=== PATIENT | male | born 1955 | race African-American/Black ===

== ENCOUNTER 2016-04-10 17:34 | Emergency (ER) | payer MEDICARE, MEDICAID ==
[~2016-04-10] VITALS: Ht 185.4 cm; Wt 100.0 kg
[~2016-04-10 17:34] MED LIST: BLOOD PRESSURE; CHOLESTEROL LOWERING; PRED20 PO; RANI150 PO
[2016-04-10 17:40] VITALS: BP 133/89; PULSE 93; RESP 12; TEMP 98.5; O2SAT 100
[2016-04-10] MEDS ORDERED: LIDOCAINE 1%/EPINEPHrine 1:100,000 SOLN 20 ML VIAL INFIL ONE (17:45)
[2016-04-10 18:05] LABS: BASOPHIL # 0.1 TH/MM3 (0-0.2); BASOPHIL % 1.4 % (0.0-2.0); EOSINOPHIL % 0.1 % (0.0-4.0); HEMATOCRIT 30.9 % (39.0-51.0); HEMO FLAGS DIFF FINAL; LYMPH % 40.7 % (9.0-44.0); LYMPHOCYTE # 2.9 TH/MM3 (1.0-4.8); MEAN CELL VOLUME 88.6 FL (80.0-100.0); MEAN CORPUSCULAR HGB CONC 31.6 % (32.0-36.0); MONO % 15.8 % (0.0-8.0); PLATELET COUNT 119 TH/MM3 (150-450); RED BLOOD COUNT 3.49 MIL/MM3 (4.50-5.90); RED CELL DISTRIBUTION WIDTH 19.2 % (11.6-17.2)
--- NOTE | 2016-04-10 18:07 | PD ---
HPI Chief Complaint: Fall Time Seen by Provider: 18:03 Travel History International Travel<30 days: No Contact w/Intl Traveler<30days: No Traveled to known affect area: No History of Present Illness HPI 60-year-old male that presents to the ED for evaluation of fall. Patient reports that today he believes that he had a slip and fall. Per patient doesn' t remember what actually happened as he happened so quick. Per patient she's been weak in his legs secondary to chemotherapy secondary to Multiple Myeloma. Per patient he gets chemotherapy every Monday. Last time being this Monday. Per patient she did not lose consciousness but did hit the back of his head. Per patient he wasnt able to get himself up and called the ambulance. Ambulance was in seen and apparently patient was going to be put on a backboard with patient got more dizzy secondary to laying flat. Patient does have a hematoma to the right occipital head. He denies any blood thinners other than aspirin. He denies any chest pain or shortness of breath. No hip pain or arm pain. Able to move all extremities. He states having some neck and back discomfort but otherwise minimal discomfort. Per patient the pain in his head is 7 out of 10. He denies any blurry vision or double vision. No allergies to medication. PFSH Past Medical History Cancer: Yes (MYELOMA) Chemotherapy: Yes (EVERY MONDAY) Diminished Hearing: No Hypertension: Yes Past Surgical History Surgical History: No Previous Surgery Family History Family Hypercholesterolemia: Yes Social History Alcohol Use: Yes (OCCASIONALLY) Tobacco Use: Yes (2-3 CIGARETTES PER DAY) Substance Use: No Allergies-Medications (Allergen,Severity, Reaction): Coded Allergies: No Known Allergies (Verified , 04/10/16) Reported Meds & Prescriptions Reported Meds & Active Scripts Active Reported [Cholesterol Lowering] Review of Systems General / Constitutional: No: Fever, Chills, Weight Gain, Weight Loss, Other Eyes: No: Diploplia, Blurred Vision, Photophobia, Drainage, Redness, Foreign Body Sensation, Pain, Tearing, Blind Spots, Visual changes, Blindness, Other HENT: Positive: Headaches, No: Vertigo, Lightheadedness, Sore Throat, Rhinitis , Rhinorrhea, Congestion, Nosebleed, Neck Stiffness, Neck Pain, Masses, Gingival Bleeding, Dental Difficulties, Ear Discharge, Earache, Other Cardiovascular: No: Chest Pain or Discomfort, Palpitations, Irregular Rhythm, Tachycardia, Diaphoresis, Syncope, Dyspnea on exertion, Varicosities, Edema, Cyanosis, Varicosities, Phlebitis, Claudication, Other Respiratory: No: Cough, Shortness of Breath, Wheezing, Sneezing, Orthopnea, Hemoptysis, Stridor, Night Sweats, Pleuritic Pain, Other Gastrointestinal: No: Nausea, Vomiting, Diarrhea, Abdominal Pain, Hematemesis, Hematochezia, Constipation, Changes in Bowel Habits, Indigestion, Dysphagia, Loss of Appetite, Other Genitourinary: No: Urgency, Frequency, Dysuria, Nocturia, Hematuria, Decreased Urinary Output, Oliguria, Hesitancy, Dribbling, Incontinence, Pelvic Pain, Flank Pain, Dyspareunia, Discharge, Dysmenorrhea, Menorrhagia, Metorrhagia, Vaginal Bleeding, Other Musculoskeletal: Positive: Weakness, Pain, No: Myalgias, Arthralgias, Limited ROM, Cramping, Edema, Atrophy, Other Skin: Positive Lumps, No Rash, No Itching, No Dryness, No Hives, No Change in Pigmentation, No Change in nails, No Alopecia, No Lesions, No Breast Lumps, No Breast Tenderness, No Breast Swelling, No Other Neurologic: Positive: Weakness, Headache, No: Dizziness, Syncope, Focal Abnormalities, Coordination Problem, Tremor, Ataxia, Change in Mentation, Slurred Speech, Paresthesia, Incontinence, Seizures, Sensory Disturbance, Other Psychiatric: No: Anxiety, Depression, Suicidal Ideations, Disorder of Thought, Mood Disorder, Substance Abuse, Homicidal Ideation, Other Endocrine: No: Heat Intolerance, Cold Intolerance, Polyuria, Polydipsia, Other Hematologic/Lymphatic: No: Easy Bruising, Lymph Node Enlargement, Other Physical Exam Narrative GENERAL: SKIN: Warm and dry. Patient has a 3 cm in diameter occipital hematoma to the right side of the head with a small laceration which is about 3 cm. Very well approximated. HEAD: Atraumatic. Normocephalic. EYES: Pupils equal and round. No scleral icterus. No injection or drainage. ENT: No nasal bleeding or discharge. Mucous membranes pink and moist. Tongue is midline. No uvula deviation. NECK: Trachea midline. No JVD. CARDIOVASCULAR: Regular rate and rhythm. No murmurs, S3, S4. RESPIRATORY: No accessory muscle use. Clear to auscultation. Breath sounds equal bilaterally. GASTROINTESTINAL: Abdomen soft, non-tender, nondistended. Hepatic and splenic margins not palpable. MUSCULOSKELETAL: Extremities without clubbing, cyanosis, or edema. No obvious deformities. Full range of motion of the upper and lower extremities bilaterally. 2+ pulses bilaterally. Neurovascular intact. Patient had some cervical spine to to palpation. No lumbar, thoracic spine tenderness to palpation. No obvious pelvic pain to palpation. NEUROLOGICAL: Awake and alert. No obvious cranial nerve deficits. Motor grossly within normal limits. Five out of 5 muscle strength in the arms and legs. Normal speech. PSYCHIATRIC: Appropriate mood and affect; insight and judgment normal. Data Data Last Documented VS Vital Signs Date Time Temp Pulse Resp B/P Pulse Ox O2 Delivery O2 Flow Rate FiO2 04/10/16 17:49 93 15 100 Room Air 04/10/16 17:40 98.5 133/89 Orders Complete Blood Count With Diff (04/10/16 17:40) Basic Metabolic Panel (Bmp) (04/10/16 17:40) Prothrombin Time / Inr (Pt) (04/10/16 17:40) Act Partial Throm Time (Ptt) (04/10/16 17:40) Magnesium (Mg) (04/10/16 17:40) Thyroid Stimulating Hormone (04/10/16 17:40) Ct Brain W/O Iv Contrast(Rout) (04/10/16 17:40) Iv Access Insert/Monitor (04/10/16 17:40) Ecg Monitoring (04/10/16 17:40) Oximetry (04/10/16 17:40) Ct Cerv Spine W/O Contrast (04/10/16 ) Chest, Single Ap (04/10/16 ) Wound Care (04/10/16 17:42) Lidocai-Epi 1%-1:100,000 Inj (Xylocaine- (04/10/16 17:45) Labs Laboratory Tests Test 04/10/16 17:52 White Blood Count 7.0 TH/MM3 Red Blood Count 3.49 MIL/MM3 Hemoglobin 9.8 GM/DL Hematocrit 30.9 % Mean Corpuscular Volume 88.6 FL Mean Corpuscular Hemoglobin 28.0 PG Mean Corpuscular Hemoglobin 31.6 % Concent Red Cell Distribution Width 19.2 % Platelet Count 119 TH/MM3 Mean Platelet Volume 8.7 FL Neutrophils (%) (Auto) 42.0 % Lymphocytes (%) (Auto) 40.7 % Monocytes (%) (Auto) 15.8 % Eosinophils (%) (Auto) 0.1 % Basophils (%) (Auto) 1.4 % Neutrophils # (Auto) 3.0 TH/MM3 Lymphocytes # (Auto) 2.9 TH/MM3 Monocytes # (Auto) 1.1 TH/MM3 Eosinophils # (Auto) 0.0 TH/MM3 Basophils # (Auto) 0.1 TH/MM3 CBC Comment DIFF FINAL Differential Comment Prothrombin Time 11.2 SEC Prothromb Time International 1.0 RATIO Ratio Activated Partial 26.8 SEC Thromboplast Time Sodium Level 142 MEQ/L Potassium Level 4.9 MEQ/L Chloride Level 109 MEQ/L Carbon Dioxide Level 25.6 MEQ/L Anion Gap 7 MEQ/L Blood Urea Nitrogen 20 MG/DL Creatinine 1.80 MG/DL Estimat Glomerular Filtration 47 ML/MIN Rate Random Glucose 83 MG/DL Calcium Level 8.7 MG/DL Magnesium Level 2.1 MG/DL Thyroid Stimulating Hormone 0.468 uIU/ML [address] [place] [address] Medical Decision Making Medical Screen Exam Complete: Yes Emergency Medical Condition: Yes Medical Record Reviewed: Yes Interpretation(s) CBC & BMP Diagram 04/10/16 17:[address] 04/10/16 1740 Signed Impressions: Service Date/Time: Sunday, April 10, 2016 18:12 - CONCLUSION: No acute intracranial abnormality disease. Right parietal scalp laceration. Misael Gee MD Chest X-Ray 04/10/16 0000 Signed Impressions: Service Date/Time: Sunday, April 10, 2016 17:57 - CONCLUSION: No acute disease. Misael Gee MD Cervical Spine CT 04/10/16 0000 Signed Impressions: Service Date/Time: Sunday, April 10, 2016 18:12 - CONCLUSION: No fracture or subluxation. Misael Gee MD Differential Diagnosis Fall versus syncope versus head injury versus ICH versus head bleed Narrative Course 60-year-old male that presents to the ED for evaluation of fall. Patient was properly examined and was found to have signs and symptoms consistent with appears to be fall. Labs and imaging ordered. Labs and imaging showed no sign of acute disease other than laceration. Patient is neurovascular intact. Patient voices no complaints other than slight headache. After explaining proceeded to the patient and she agreed to it laceration was repaired as stated in procedure note. Patient was told to do wound care. Yosi to be removed in 7 days. Patient was told to apply ice. Continue taking his pain medication as needed. This was discussed with the family member as well who agrees with plan. See ED for any worsening symptoms. Procedures Procedure Narrative LACERATION LOCATION: right occipital head LENGTH: 3 cm NUMBER OF STITCHES/YOSI: 7 yosi REPAIR: The area of the laceration was prepped with Betadine and sterilely draped. The laceration was infiltrated with 1% Xylocaine. The wound was copiously irrigated and explored without evidence of foreign body, tendon injury or neurovascular injury. The wound was closed using sterile stapler. This was a 1 layer repair. A sterile dressing was applied. The patient was advised to keep the dressing clean and dry. Patient tolerated the procedure well. Diagnosis Primary Impression: Head injury, acute Qualified Code: S09.90XA - Head injury, acute, initial encounter Additional Impression: Laceration Patient Instructions: General Instructions Additional Instructions: Wound care daily with soap and water. You can apply bandaid if needed. Neosporyn or OTC antibiotic ointment to area as needed twice a day for at least 2 weeks to help with scarring and prevent infection. Meoderma OTC for scarring if needed. Avoid sun exposure for 2 months as the sun could make scar darker and more noticeable. Get yosi removed in 5-7 days. See ED if worst. Continue taking her pain medication. Ice to the area. See ED worsening symptoms Med/Other Pt SpecificInfo: Prescription(s) given Disposition: 01 DISCHARGE HOME Condition: Stable Bhavin Lauren Apr 10, 2016 18:07 Bhavin Lauren Apr 10, 2016 18:07
--- NOTE | 2016-04-10 18:09 | RADRPT ---
EXAM DATE/TIME: 04/10/2016 17:57 [facility] COMPARISON: No previous studies available for comparison. INDICATIONS : Shortness of breath post fall. MEDICAL HISTORY : None. SURGICAL HISTORY : None. ENCOUNTER: Initial ACUITY: 1 day PAIN SCORE: 0/10 LOCATION: Bilateral chest FINDINGS: A single view of the chest demonstrates the lungs to be symmetrically aerated without evidence of mas s, infiltrate or effusion. The cardiomediastinal contours are unremarkable. Osseous structures are intact. CONCLUSION: No acute disease. Misael Gee MD on April 10, 2016 at 18:08 Board Certified Radiologist. This report was verified electronically.
[2016-04-10 18:13] LABS: APTT (PATIENT) 26.8 SEC (24.3-30.1); PROTHROMBIN TIME - PATIENT 11.2 SEC (9.8-11.6)
--- NOTE | 2016-04-10 18:21 | RADRPT ---
EXAM DATE/TIME: 04/10/2016 18:12 [facility] COMPARISON: No previous studies available for comparison. INDICATIONS : Fall today, cephalgia and neck pain. RADIATION DOSE: 45.77 CTDIvol (mGy) MEDICAL HISTORY : Hypertension. SURGICAL HISTORY : None. ENCOUNTER: Initial ACUITY: 1 day PAIN SCALE: 6/10 LOCATION: Bilateral head TECHNIQUE: Multiple contiguous axial images were obtained of the head. Using automated exposure control and adj ustment of the mA and/or kV according to patient size, radiation dose was kept as low as reasonably a chievable to obtain optimal diagnostic quality images. FINDINGS: CEREBRUM: The ventricles are normal for age. No evidence of midline shift, mass lesion, hemorrhage or acute in farction. No extra-axial fluid collections are seen. POSTERIOR FOSSA: The cerebellum and brainstem are intact. The 4th ventricle is midline. The cerebellopontine angle i s unremarkable. EXTRACRANIAL: The visualized portion of the orbits is intact. Right posterior right scalp laceration. SKULL: The calvaria is intact. No evidence of skull fracture. CONCLUSION: No acute intracranial abnormality disease. Right parietal scalp laceration. Misael Gee MD on April 10, 2016 at 18:18 Board Certified Radiologist. This report was verified electronically.
[2016-04-10 18:31] LABS: BICARBONATE 25.6 MEQ/L (21.0-32.0); MAGNESIUM 2.1 MG/DL (1.5-2.5); POTASSIUM 4.9 MEQ/L (3.5-5.1)
--- NOTE | 2016-04-10 18:33 | RADRPT ---
EXAM DATE/TIME: 04/10/2016 18:12 [facility] COMPARISON: No previous studies available for comparison. INDICATIONS : Fall today, cephalgia and neck pain. RADIATION DOSE: 21.51 CTDIvol (mGy) MEDICAL HISTORY : Hypertension. SURGICAL HISTORY : None. ENCOUNTER: Initial ACUITY: 1 day PAIN SCALE: 7/10 LOCATION: Bilateral neck TECHNIQUE: Volumetric scanning of the cervical spine was performed. Multiplanar reconstructions in the sagittal, coronal and oblique axial planes were performed. Using automated exposure control and adjustment o f the mA and/or kV according to patient size, radiation dose was kept as low as reasonably achievable to obtain optimal diagnostic quality images. FINDINGS: VERTEBRAE: Normal vertebral body height. Degenerative changes at C5-6. Posterior disc osteophyte complex without canal stenosis. ALIGNMENT: No evidence of subluxation. CONCLUSION: No fracture or subluxation. Misael Gee MD on April 10, 2016 at 18:31 Board Certified Radiologist. This report was verified electronically.
[2016-04-10 19:45] VITALS: BP 131/74
--- NOTE | 2016-04-11 12:36 | EKG ---
Date Performed: 04/10/2016 Time Performed: 17:59:05 PTAGE: 60 years EKG: Sinus rhythm BORDERLINE LEFT AXIS DEVIATION MODERATE VOLTAGE CRITERIA FOR LVH, CONSIDER NORMAL VARIANT NONSPECIFI C T-WAVE ABNORMALITY BORDERLINE ECG INTERPRETATION BASED ON A DEFAULT AGE OF 39 YEARS NO PREVIOUS TRACING DOCTOR: Roberto Coon Interpretating Date/Time 04/11/2016 12:31:10
== END 2016-04-10 19:51 | disposition home or self-care (01) ==
LOC: NEPE 17:34
DX: S09.90XA Unspecified injury of head, initial encounter (principal); C90.00 Multiple myeloma not having achieved remission; F17.210 Nicotine dependence, cigarettes, uncomplicated; Z79.899 Other long term (current) drug therapy; W18.09XA Striking against other object with subsequent fall, initial encounter; Y93.9 Activity, unspecified; Y92.9 Unspecified place or not applicable; Y99.9 Unspecified external cause status
CPT/HCPCS: 12002; 70450; 71010; 72125; 80048; 83735; 84443; 85025; 85610; 85730; 93005